=== PATIENT | female | born 1980 | race African-American/Black ===

== ENCOUNTER 2020-05-27 11:02 | Emergency (ER) | payer OTHER ==
[~2020-05-27] VITALS: Ht 167.6 cm; Wt 104.3 kg
[2020-05-27] MEDS ORDERED: KETOROLAC TROMETHAMINE 30 MG/ML VIAL IV STA (11:27)
[2020-05-27] MEDS ORDERED: ONDANSETRON HCL INJ 2MG/ML 2ML 2 MG/ML VIAL IV STA (11:27)
[2020-05-27] MEDS ORDERED: PANTOPRAZOLE 40 MG 10ML VIAL IV STA (11:27)
[2020-05-27] MEDS ORDERED: SODIUM CHLORIDE 0.9% 1000ML 1,000 ML IV STA (11:27)
[2020-05-27 11:57] LABS: BASOPHILS % 0.3 % (0.0-1.0); EOSINOPHILS # (AUTO) 0.1 (0.0-0.4); EOSINOPHILS % 0.9 % (0.0-6.0); HEMATOCRIT 30.6 % (34.2-44.1); HEMOGLOBIN 9.6 g/dL (12.0-16.0); LYMPHOCYTES # (AUTO) 1.3 (1.0-3.2); LYMPHOCYTES % 20.1 % (18.0-39.1); MEAN CORPUSCULAR HEMOGLOBIN 28.2 pg (28-32); MEAN CORPUSCULAR HGB CONC 31.4 g/dL (31-35); MONOCYTES # (AUTO) 0.5 (0.2-0.8); NEUTROPHILS # (AUTO) 4.6 (2.1-6.9); NEUTROPHILS % 70.4 % (38.7-80.0); PLATELET COUNT 325 x10e3/uL (140-360); RED CELL DISTRIBUTION WIDTH 14.2 % (11.7-14.4)
[2020-05-27 12:03] LABS: BILIRUBIN,URINE SMALL (NEGATIVE); CLARITY,URINE CLEAR (CLEAR); COLOR,URINE YELLOW (YELLOW); KETONES,URINE NEGATIVE (NEGATIVE); LEUKOCYTE ESTERASE ,URINE TRACE (NEGATIVE); NITRITE,URINE NEGATIVE (NEGATIVE); PREGNANCY TEST, URINE NEGATIVE (NEGATIVE); PROTEIN,URINE DIPSTICK NEGATIVE (NEGATIVE); URINE UROBILINOGEN 0.2 mg/dL (0.2 - 1)
[2020-05-27 12:14] LABS: BACTERIA,URINE RARE /HPF; EPITHELIAL CELLS,URINE RARE /LPF; INR 1.03; RBC,URINE 0-5 /HPF (0-5)
[2020-05-27 12:22] LABS: ALANINE AMINOTRANSFERASE 15 IU/L (0-55); ALBUMIN 3.2 g/dL (3.5-5.0); ALBUMIN/GLOBULIN RATIO 0.7 (0.8-2.0); ALKALINE PHOSPHATASE 73 IU/L (40-150); ANION GAP 10.5 mmol/L (8-16); BLOOD UREA NITROGEN 8 mg/dL (7-26); BUN/CREATININE RATIO 11 (6-25); CALCIUM 8.7 mg/dL (8.4-10.2); CARBON DIOXIDE 26 mmol/L (22-29); CHLORIDE 104 mmol/L (98-107); CREATININE, SERUM 0.74 mg/dL (0.57-1.11); EST GLOMERULAR FILTRATION RATE > 60 ML/MIN (60-); GLUCOSE 106 mg/dL (74-118); LIPASE 6 U/L (8-78); POTASSIUM 3.5 mmol/L (3.5-5.1); SODIUM 137 mmol/L (136-145)
--- OUTSIDE RECORDS SUMMARY | 2020-05-27 12:46 | XMS REPORT | Continuity of Care Document ---
Author Author [facility] t Organization [facility] Address [address] [place] [address] Phone Unavailable Care Team Providers Care Manager Human Resources Name Role Phone Susie Stapleton Attphys Geremias Oates MD Attphys Oneil RN, Deborah Attphys Unavailable Fantasma LEUNG, Jaspreet Ayala Attphys Doctor Unassigned, Name No Attphys Unavailable Only, Test [facility] Attphys Unavailable Hudson LEUNG, Celine Attphys Pool, Resident [facility] Attphys Unavailable Fantasma LEUNG, Jaspreet Ayala Admphys Problems This patient has no known problems. Allergies, Adverse Reactions, Alerts This patient has no known allergies or adverse reactions. Medications This patient has no known medications. Procedures This patient has no known procedures. Encounters Start Date/Time End Date/Time Encounter Type Admission Type Attendi [facility] Care Department Encounter ID Source 2020-05-24 17:36:00 2020-05-25 01:43:00 Emergency V Susie portillo [facility] [id number] 2020-05-24 00:00:00 2020-05-24 00:00:00 Nurse Triage Deborah Mckeon [facility] [id number] 2020-05-15 05:12:00 2020-05-15 09:20:00 Hospital Encounter Lucy Meek [facility] [id number] 2020-05-15 00:00:00 2020-05-15 00:00:00 Patient Secure Msg [facility] [id number] 2020-05-15 00:00:00 2020-05-15 00:00:00 Orders Only D anabelor Unassigned, Eugene [facility] [id number] 2020-05-13 09:06:04 2020-05-13 09:21:04 Laboratory Only On , [facility] [id number] 2020-04-21 00:00:00 2020-04-21 00:00:00 Telephone Celine Treviño [facility] [id number] 2020-04-17 09:41:39 2020-04-17 12:08:59 Office Visit Ollie [facility] [id number] Results This patient has no known results.
--- NOTE | 2020-05-27 13:15 | Diagnostic Imaging Report ---
EXAM: CT Abdomen and Pelvis WITHOUT intravenous contrast INDICATION: ^left sided abd pain ^20200527 ^1230. COMPARISON: None. TECHNIQUE: Abdomen and pelvis were scanned utilizing a multidetector helical scanner from the lung base to the pubic symphysis without administration of IV contrast. Coronal and sagittal reformations were obtained. Routine technique was performed. IV CONTRAST: None ORAL CONTRAST: None COMPLICATIONS: None RADIATION DOSE: Total DLP: 865 mGy*cm Dose modulation, iterative reconstruction, and/or weight based adjustment of the mA/kV was utilized to reduce the radiation dose to as low as reasonably achievable. FINDINGS: LOWER THORAX: Normal. HEPATOBILIARY: No focal hepatic lesions. Negative for intrahepatic biliary dilatation. The gallbladder is mildly distended measuring 13.5 x 4.6 cm. Partially calcified stones identified within the neck at the level of the cystic duct with surrounding probable vicarious excretion of contrast from recently administered IV contrast. Common bile duct is not dilated. SPLEEN: No splenomegaly. PANCREAS: No focal masses or ductal dilatation. ADRENALS: No adrenal nodules. KIDNEYS/URETERS: Negative for renal calculus. Negative for hydronephrosis. Ureters are not dilated. No surrounding inflammatory changes are noted. Negative for ureteral stone. PELVIC ORGANS/BLADDER: Bladder is decompressed. Uterus and ovaries are unremarkable for CT technique. PERITONEUM / RETROPERITONEUM: No free air or fluid. LYMPH NODES: No lymphadenopathy. VESSELS: Unremarkable. GI TRACT: Bowel loops are not dilated. Portions of the colon are decompressed limiting evaluation. No surrounding inflammatory changes are noted. Normal appendix is noted. BONES AND SOFT TISSUES: No acute osseous abnormality. Soft tissues are unremarkable IMPRESSION: Moderately distended gallbladder with multiple intraluminal partially calcified stones at the base/neck. Correlate for evidence of cholecystitis. Intraluminal contrast within the gallbladder may relate to vicarious excretion from recent examination. Signed by: Uche Keller MD on 05/27/2020 1:12 PM
[2020-05-27] MEDS ORDERED: DICYCLOMINE HCL 20 MG/2 ML VIAL IM ONE (13:45)
--- NOTE | 2020-05-27 14:00 | Emergency Department Note ---
History of Present Illnes History of Present Illness Chief Complaint: Abdominal Complaints History of Present Illness This is a 40 year old female Patient in from home with complaints of left sided abdominal pain that radiates to the back that started about 10 days ago with nausea and vomiting that started yesterday. Denies fever and diarrhea. Last bowel movement was yesterday. Reports pain with movement. No acute distress noted. Ambulatory without assistance. Historian: Patient Arrival Mode: Car History limited by: condition of the patient Cash Accounting Clerk Required: No Onset (how long ago): day(s) (10) Location: LEFT ABD Quality: CRAMPING Radiation: Reports non-radiation Severity: moderate Onset quality: gradual Timing of current episode: intermittent Progression: waxing and waning Chronicity: new Context: Denies recent illness Relieving factors: none Exacerbating factors: none Associated symptoms: Reports denies other symptoms Past Medical/Family History Physician Review I have reviewed the patient's past medical and family history. Any updates have been documented here. Past Medical History Recent Fever: No Clinical Suspicion of Infectio: No New/Unexplained Change in Ment: No Past Medical History: None Social History Smoking Cessation: Never Smoker Counseling Performed: No Alcohol Use: Social Any Illegal Drug Use: No TB Exposure/Symptoms: No Physically hurt or threatened: No Other Any Pre-Existing Lines (PICC,: No Review of Systems Review of Systems Constitutional: Reports no symptoms EENTM: Reports no symptoms Cardiovascular: Reports no symptoms Respiratory: Reports no symptoms Gastrointestinal: Reports as per HPI Genitourinary: Reports dysuria, Reports frequency Musculoskeletal: Reports no symptoms Integumentary: Reports no symptoms Neurological: Reports no symptoms Psychological: Reports no symptoms Endocrine: Reports no symptoms Hematological/Lymphatic: Reports no symptoms Physical Exam Related Data Allergies: Coded Allergies: amoxicillin (Verified Allergy, Mild, gas, nausea, 05/27/20) iodine (Unverified Allergy, Unknown, 05/27/20) Cannot have it on her skin. No problems with iodine contrast Triage Vital Signs Vital Signs Date Time Temp Pulse Resp B/P (MAP) Pulse Ox O2 Delivery O2 Flow Rate FiO2 05/27/20 11:14 98.3 72 16 145/78 100 Room Air Vital signs reviewed: Yes Physical Exam CONSTITUTIONAL Constitutional: Present well-developed, Present well-nourished HENT HENT: Present normocephalic, Present atraumatic, Present oropharynx clear/moist, Present nose normal HENT L/R: Present left ext ear normal, Present right ext ear normal EYES Eyes: Reports PERRL, Reports conjunctivae normal NECK Neck: Present ROM normal PULMONARY Pulmonary: Present effort normal, Present breath sounds normal CARDIOVASCULAR Cardiovascular: Present regular rhythm, Present heart sounds normal, Present capillary refill normal, Present normal rate GASTROINTESTINAL Abdominal: Present soft, Present bowel sounds normal, Present tender (SUPRAP UBIC AND LEFT LOWER Q WITHOUT R/G); Absent guarding, Absent rebound GENITOURINARY Genitourinary: Present exam deferred SKIN Skin: Present warm, Present dry MUSCULOSKELETAL Musculoskeletal: Present ROM normal NEUROLOGICAL Neurological: Present alert, Present oriented x 3, Present no gross motor or sensory deficits PSYCHOLOGICAL Psychological: Present mood/affect normal, Present judgement normal Results Laboratory Result Diagram: 05/27/20 1127 05/27/20 1127 Laboratory Laboratory Tests Test 05/27/20 11:27 White Blood Count 6.52 x10e3/uL (4.8-10.8) Red Blood Count 3.40 x10e6/uL (3.6-5.1) Hemoglobin 9.6 g/dL (12.0-16.0) Hematocrit 30.6 % (34.2-44.1) Mean Corpuscular Volume 90.0 fL (81-99) Mean Corpuscular Hemoglobin 28.2 pg (28-32) Mean Corpuscular Hemoglobin Concent 31.4 g/dL (31-35) Red Cell Distribution Width 14.2 % (11.7-14.4) Platelet Count 325 x10e3/uL (140-360) Neutrophils (%) (Auto) 70.4 % (38.7-80.0) Lymphocytes (%) (Auto) 20.1 % (18.0-39.1) Monocytes (%) (Auto) 8.0 % (4.4-11.3) Eosinophils (%) (Auto) 0.9 % (0.0-6.0) Basophils (%) (Auto) 0.3 % (0.0-1.0) Neutrophils # (Auto) 4.6 (2.1-6.9) Lymphocytes # (Auto) 1.3 (1.0-3.2) Monocytes # (Auto) 0.5 (0.2-0.8) Eosinophils # (Auto) 0.1 (0.0-0.4) Basophils # (Auto) 0.0 (0.0-0.1) Absolute Immature Granulocyte (auto 0.02 x10e3/uL (0-0.1) Prothrombin Time 14.0 seconds (11.9-14.5) Prothromb Time International Ratio 1.03 Activated Partial Thromboplast Time 33.0 seconds (23.8-35.5) Urine Color Yellow (YELLOW) Urine Clarity Clear (CLEAR) Urine pH 6.5 (5 - 7) Urine Specific [place] 1.025 (1.010-1.025) Urine Protein Negative (NEGATIVE) Urine Glucose (UA) Negative (NEGATIVE) Urine Ketones Negative (NEGATIVE) Urine Blood Negative (NEGATIVE) Urine Nitrite Negative (NEGATIVE) Urine Bilirubin Small (NEGATIVE) Urine Urobilinogen 0.2 mg/dL (0.2 - 1) Urine Leukocyte Esterase Trace (NEGATIVE) Urine RBC 0-5 /HPF (0-5) Urine WBC 6-10 /HPF (0-5) Urine Epithelial Cells Rare /LPF (NONE) Urine Bacteria Rare /HPF (NONE) Urine Test Negative (NEGATIVE) Sodium Level 137 mmol/L (136-145) Potassium Level 3.5 mmol/L (3.5-5.1) Chloride Level 104 mmol/L (98-107) Carbon Dioxide Level 26 mmol/L (22-29) Anion Gap 10.5 mmol/L (8-16) Blood Urea Nitrogen 8 mg/dL (7-26) Creatinine 0.74 mg/dL (0.57-1.11) Estimat Glomerular Filtration Rate > 60 ML/MIN (60-) BUN/Creatinine Ratio 11 (6-25) Glucose Level 106 mg/dL (74-118) Calcium Level 8.7 mg/dL (8.4-10.2) Total Bilirubin 0.3 mg/dL (0.2-1.2) Aspartate Amino Transf (AST/SGOT) 15 IU/L (5-34) Alanine Aminotransferase (ALT/SGPT) 15 IU/L (0-55) Alkaline Phosphatase 73 IU/L (40-150) Total Protein 7.9 g/dL (6.5-8.1) Albumin 3.2 g/dL (3.5-5.0) Globulin 4.7 g/dL (2.3-3.5) Albumin/Globulin Ratio 0.7 (0.8-2.0) Lipase 6 U/L (8-78) Human Chorionic Gonadotropin, Qual Negative (NEGATIVE) Lab results reviewed: Yes Imaging Imaging results reviewed: Yes Impressions EXAM: CT Abdomen and Pelvis WITHOUT intravenous contrast INDICATION: ^left sided abd pain ^20200527 ^1230. COMPARISON: None. TECHNIQUE: Abdomen and pelvis were scanned utilizing a multidetector helical scanner from the lung base to the pubic symphysis without administration of IV contrast. Coronal and sagittal reformations were obtained. Routine technique was performed. IV CONTRAST: None ORAL CONTRAST: None COMPLICATIONS: None RADIATION DOSE: Total DLP: 865 mGy*cm Dose modulation, iterative reconstruction, and/or weight based adjustment of the mA/kV was utilized to reduce the radiation dose to as low as reasonably achievable. FINDINGS: LOWER THORAX: Normal. HEPATOBILIARY: No focal hepatic lesions. Negative for intrahepatic biliary dilatation. The gallbladder is mildly distended measuring 13.5 x 4.6 cm. Partially calcified stones identified within the neck at the level of the cystic duct with surrounding probable vicarious excretion of contrast from recently administered IV contrast. Common bile duct is not dilated. SPLEEN: No splenomegaly. PANCREAS: No focal masses or ductal dilatation. ADRENALS: No adrenal nodules. KIDNEYS/URETERS: Negative for renal calculus. Negative for hydronephrosis. Ureters are not dilated. No surrounding inflammatory changes are noted. Negative for ureteral stone. PELVIC ORGANS/BLADDER: Bladder is decompressed. Uterus and ovaries are unremarkable for CT technique. PERITONEUM / RETROPERITONEUM: No free air or fluid. LYMPH NODES: No lymphadenopathy. VESSELS: Unremarkable. GI TRACT: Bowel loops are not dilated. Portions of the colon are decompressed limiting evaluation. No surrounding inflammatory changes are noted. Normal appendix is noted. BONES AND SOFT TISSUES: No acute osseous abnormality. Soft tissues are unremarkable IMPRESSION: Moderately distended gallbladder with multiple intraluminal partially calcified stones at the base/neck. Correlate for evidence of cholecystitis. Intraluminal contrast within the gallbladder may relate to vicarious excretion from recent examination. Signed by: Uche Keller MD on 05/27/2020 1:12 PM Assessment & Plan Medical Decision Making [facility] ABD PAIN, N/V, DYSURIA - CBC, CHEM, UA/CX, CT ABD/PELVIS - EVAL GASTROENTERITIS, DIVERTICULITIS, UTI/PYELO Reassessment Reassessment [facility], BENTYL, ZOFRAN, CEFTIN, F/U PCP AND SURGERY DR CRUZ, RTED PRN, BLAND DIET Assessment & Plan Final Impression: (1) Gastroenteritis (2) Vomiting (3) UTI (urinary tract infection) (4) Gallstones Depart Disposition: HOME, SELF-CARE Last Vital Signs Date Time Temp Pulse Resp B/P (MAP) Pulse Ox O2 Delivery O2 Flow Rate FiO2 05/27/20 12:56 69 18 124/86 100 Room Air 05/27/20 11:14 98.3 Medications in the ED Pantoprazole Sodium 40 mg ONCE STAT IV Last administered on 05/27/20at 12:04; Admin Dose 40 MG; Start 05/27/20 at 11:27; Stop 05/27/20 at 11:33; Status DC Ondansetron HCl 4 mg ONCE STAT IV Last administered on 05/27/20at 12:04; Admin Dose 4 MG; Start 05/27/20 at 11:27; Stop 05/27/20 at 11:33; Status DC Ketorolac Tromethamine 30 mg ONCE STAT IV Last administered on 05/27/20at 12:04; Admin Dose 30 MG; Start 05/27/20 at 11:27; Stop 05/27/20 at 11:33; Status DC Sodium Chloride 1,000 ml @ 0 mls/hr Q0M STAT IV Last administered on 05/27/20at 12:05; Admin Dose 250 MLS/HR; Start 05/27/20 at 11:27; Stop 05/27/20 at 11:30; Status DC Dicyclomine HCl 20 mg ONCE ONCE IM ; Start 05/27/20 at 13:45; Stop 05/27/20 at 13:46 ONELIA BARKSDALE MD May 27, 2020 14:00
[2020-05-27 14:04] VITALS: BP 119/78
== END 2020-05-27 14:15 | disposition home or self-care (01) ==
LOC: ER 11:21
DX: R10.9 Unspecified abdominal pain (principal); K52.9 Noninfective gastroenteritis and colitis, unspecified; N39.0 Urinary tract infection, site not specified; K80.80 Other cholelithiasis without obstruction
CPT/HCPCS: 36415; 74176; 80053; 81001; 81025; 83690; 84702; 85025; 85610; 85730; 87086; 99284; C9113; J0500; J1885; J2405; J7030